=== PATIENT | female | born 1950 | race Asian ===

== ENCOUNTER 2022-06-23 15:04 | Inpatient (IN) | payer MEDICARE, OTHER ==
[~2022-06-23] VITALS: Ht 167.6 cm; Wt 63.5 kg
--- NOTE | 2022-06-23 15:37 | NUR ---
IV ESTABLISHED. 20G RAC
--- NOTE | 2022-06-23 15:37 | NUR ---
BLOOD DRAWN AND SENT TO LAB
--- NOTE | 2022-06-23 15:40 | NUR ---
MRSA SWAB COLLECTED AND SENT TO LAB
--- NOTE | 2022-06-23 15:40 | NUR ---
covid swab collected and sent to lab
--- NOTE | 2022-06-23 15:57 | NUR ---
MOVE SHEET SUBMITTED.
[2022-06-23 16:02] LABS: BASOPHILS # (AUTO) 0.1 K/uL (0.0-0.2); BASOPHILS % (AUTO) 0.9 % (0.0-2.0); EOSINOPHILS % (AUTO) 1.2 % (0.0-6.0); HEMATOCRIT 35 % (33-45); HEMOGLOBIN 11.7 g/dL (11.5-14.8); LYMPHOCYTES # (AUTO) 1.4 K/uL (0.8-4.8); LYMPHOCYTES % (AUTO) 14.5 % (20.0-44.0); MEAN CORPUSCULAR HGB CONC 33 g/dl (31.0-36.0); MEAN CORPUSCULAR VOLUME 100 fL (82-100); MONOCYTES # (AUTO) 0.8 K/uL (0.1-1.30); NEUTROPHILS # (AUTO) 7.5 K/uL (1.8-8.9); NEUTROPHILS % (AUTO) 75.4 % (43.0-81.0); PLATELET COUNT (AUTO) 337 K/uL (150-450); RED BLOOD CELL COUNT(AUTO) 3.54 MIL/uL (4.0-5.2)
[2022-06-23 16:10] LABS: CARBON DIOXIDE 27 mmol/L (21-32); CHLORIDE 106 mmol/L (98-107); CREATININE 0.4 mg/dL (0.6-1.3); GLUCOSE 115 mg/dL (74-106); POTASSIUM 3.4 mmol/L (3.5-5.1); SODIUM SERUM 138 mmol/L (136-145); UREA NITROGEN, BLOOD 20 mg/dL (7-18)
--- NOTE | 2022-06-23 16:14 | NUR ---
XRAY AT BEDSIDE
[2022-06-23] MEDS ORDERED: ONDANSETRON HCL/PF 4 MG/2 ML VIAL IVP PRN (17:00)
[2022-06-23] MEDS ORDERED: Z GUARD REMEDY 4 OZ OINT TP PRN (17:00)
[2022-06-23] MEDS ORDERED: ACETAMINOPHEN 325 MG TABLET PO PRN (17:00)
[2022-06-23] MEDS ORDERED: ZOLPIDEM TARTRATE 5 MG TABLET PO PRN (17:00)
[2022-06-23] MEDS ORDERED: MAGNESIUM HYDROXIDE 30 ML UDC PO PRN (17:00)
[2022-06-23] MEDS ORDERED: MAG HYDROX/AL HYDROX/SIMETH 30 ML UDC PO PRN (17:00)
--- NOTE | 2022-06-23 17:35 | NUR ---
REPORT GIVEN TO JONH FOR CONTINUATION OF CARE
--- NOTE | 2022-06-23 18:05 | NUR ---
RN NOTE RECEIVED PATIENT ALERT, ORIENTED X3, ON ROOM AIR. VITALS 98.1 HR 118, RR 22 02SAT 93% BP 137/83 WITH NO PAIN OR DISCOMFORT IV ACCESS ON RAC 20 BEST, PATENT AND FLUSHING WELL. PATIENT NOTD WITH BLE REDNESS ON TOES, PRESSURE ULCER ON SACRUM, AND PRESSURE ULCER ON LEFT EAR. PICTURES TAKEN. ALL SAFETY PRECAUTIONS TAKEN, HEAD OF BED ELEVATED, BED IN LOWEST AND LOCKED POSITION. WILL CONTINUE TO MONITOR.
--- NOTE | 2022-06-23 19:25 | NUR ---
RN CLOSING NOTE PATIENT ALERT, ORIENTED X3, ON ROOM AIR. VITALS WITH NO PAIN OR DISCOMFORT IV ACCESS ON RAC 20 BEST, PATENT AND FLUSHING WELL. PATIENT NOTED WITH BLE REDNESS ON TOES, PRESSURE ULCER ON SACRUM, AND PRESSURE ULCER ON LEFT EAR. PICTURES TAKEN. ALL SAFETY PRECAUTIONS TAKEN, HEAD OF BED ELEVATED, BED IN LOWEST AND LOCKED POSITION ON NPO, AWAITING SWALLOW EVAL. REPORT GIVEN TO NIGHT NURSE FOR CONTINUING OF CARE.
--- NOTE | 2022-06-23 19:30 | NUR ---
RN OPENING NOTE PATIENT ALERT, ORIENTED X3, ON ROOM AIR. PATIENT DENIES PAIN AT REST. IV ACCESS ON RAC 20 GAUGE, PATENT AND INTACT, FLUSHING WELL. PATIENT NPO, AWAITING SWALLOW EVAL. ALL SAFETY PRECAUTIONS TAKEN, HEAD OF BED ELEVATED, BED IN LOWEST AND LOCKED POSITION. REPORT GIVEN TO NIGHT NURSE FOR CONTINUING OF CARE.
[2022-06-23 20:00] VITALS: BP 115/73
[2022-06-23] MEDS: IV NS 0.9% 1,000 ML IV PRN (20:40)
[2022-06-24 04:00] VITALS: BP 106/61
[2022-06-24 06:24] LABS: BASOPHILS # (AUTO) 0.1 K/uL (0.0-0.2); BASOPHILS % (AUTO) 0.8 % (0.0-2.0); EOSINOPHILS % (AUTO) 0.6 % (0.0-6.0); HEMATOCRIT 34 % (33-45); HEMOGLOBIN 11.4 g/dL (11.5-14.8); LYMPHOCYTES # (AUTO) 1.6 K/uL (0.8-4.8); LYMPHOCYTES % (AUTO) 20.7 % (20.0-44.0); MEAN CORPUSCULAR HGB CONC 34 g/dl (31.0-36.0); MEAN CORPUSCULAR VOLUME 101 fL (82-100); MONOCYTES # (AUTO) 0.6 K/uL (0.1-1.30); MONOCYTES % (AUTO) 8.6 % (2.0-12.0); NEUTROPHILS # (AUTO) 5.2 K/uL (1.8-8.9); NEUTROPHILS % (AUTO) 69.3 % (43.0-81.0); PLATELET COUNT (AUTO) 321 K/uL (150-450); RED BLOOD CELL COUNT(AUTO) 3.37 MIL/uL (4.0-5.2); WHITE BLOOD COUNT (AUTO) 7.5 K/uL (4.3-11.0)
--- NOTE | 2022-06-24 06:45 | NUR ---
RN CLOSING NOTE PATIENT ALERT, ORIENTED X3, ON ROOM AIR. VITALS WITH NO PAIN OR DISCOMFORT. PATIENT IS NPO AWAITING SWALLOW EVAL. IV ACCESS ON RAC 20 BEST, PATENT AND FLUSHING WELL. ALL SAFETY PRECAUTIONS TAKEN, HEAD OF BED ELEVATED, BED IN LOWEST AND LOCKED POSITION. REPORT GIVEN TO THE NEXT SHIFT FOR CONTINUING OF CARE.
[2022-06-24 07:00] LABS: CARBON DIOXIDE 25 mmol/L (21-32); CHLORIDE 107 mmol/L (98-107); CREATININE 0.4 mg/dL (0.6-1.3); GLUCOSE 82 mg/dL (74-106); MAGNESIUM 2.2 mg/dL (1.8-2.4); PHOSPHORUS 3.2 mg/dL (2.5-4.9); POTASSIUM 3.4 mmol/L (3.5-5.1); SODIUM SERUM 139 mmol/L (136-145); UREA NITROGEN, BLOOD 20 mg/dL (7-18)
--- NOTE | 2022-06-24 07:45 | NUR ---
MS RN OPENING NOTE PATIENT ALERT, ORIENTED X3, ON ROOM AIR. NO COMPLAINTS OF PAIN OR DISCOMFORT NOTED AT THIS TIME.IV ACCESS ON RAC 20 BEST, PATENT AND FLUSHING WELL. CURRENTLY NPO AT THIS TIME,PENDING SWALLOW EVAL. ALL SAFETY PRECAUTIONS TAKEN, HEAD OF BED ELEVATED, BED IN LOWEST AND LOCKED POSITION. SIDE RAILS UP X2. BED ALARM ON
[2022-06-24 08:00] VITALS: BP 96/63
--- NOTE | 2022-06-24 09:19 | NUR ---
WOUND CARE CONSULT: PT PRESENTS WITH MULTIPLE WOUNDS AND SKIN ISSUES INCLUDING BILATERAL HEEL SCARS WITH PEELING SKIN, LEFT EAR DEEP TISSUE INJURY AND SACRAL UNSTAGEABLE PRESSURE ULCER, ALL PRESENT ON ADMISSION. DR CJ ROWLEY CALLED FOR SURGICAL CONSULT. RECOMMENDATIONS MADE FOR SKIN PROTECTION AND WOUND CARE. DISCUSSED WITH NURSING STAFF. PT IS INCONTINENT. FIRST STEP LOW AIRLOSS MATTRESS IS ON ORDER. Addendum: 06/24/22 at 0920 by MARCO MALDONADO WNDNU Amended: Links added.
[2022-06-24] MEDS: IV NS 0.9% 1,000 ML IV PRN (11:47)
[2022-06-24] MEDS: POTASSIUM CL. PREMIX PERIPHER. 50 ML IV SCH ×2 (11:47→12:58)
[2022-06-24] MEDS ORDERED: AMIN30LI2 PO (12:13)
[2022-06-24] MEDS ORDERED: LACT-246 PO (12:13)
[2022-06-24] MEDS ORDERED: HYDR170P TP (12:13)
[2022-06-24] MEDS ORDERED: POVI3780 TP (12:13)
[2022-06-24] MEDS ORDERED: MIRT7.5T10 PO (12:13)
[2022-06-24] MEDS ORDERED: ATOR10TA PO (12:13)
[2022-06-24] MEDS ORDERED: MEGE400O4 PO (12:13)
[2022-06-24] MEDS ORDERED: HALO5TAB8 PO (12:13)
[2022-06-24] MEDS ORDERED: DIVA125T32 PO (12:13)
[2022-06-24] MEDS ORDERED: COLL30OI TP (12:13)
[2022-06-24] MEDS ORDERED: OLAN5TAB3 PO (12:13)
[2022-06-24] MEDS ORDERED: ASCO-340 PO (12:13)
[2022-06-24] MEDS ORDERED: MULT-447 PO (12:13)
[2022-06-24] MEDS: NEOMY SULF/BACITRAC ZN/POLY 15 GM TUBE TP SCH (14:27)
[2022-06-24] MEDS: DAKINS QUARTER STRENGTH (0.125%) 480 ML BOTTLE TOP SCH (14:28)
[2022-06-24 16:00] VITALS: BP 102/64
[2022-06-24] MEDS: MEGESTROL ACETATE SUSP 400 MG/10 ML UDC PO SCH ×2 (17:00→18:18)
[2022-06-24] MEDS: OLANZAPINE 5 MG TABLET PO SCH (17:00)
[2022-06-24] MEDS: ENSURE ENLIVE 237 ML LIQUID (VANILLA) PO SCH (17:00)
[2022-06-24] MEDS ORDERED: PROSOURCE / PROSTAT (PYXIS) 30 ML UDC PO SCH (17:00)
--- NOTE | 2022-06-24 19:10 | NUR ---
RN OPENING NOTES RECEIVED PATIENT ON BED, AWAKE, A/0 x 3 . ON ROOM AIR SATING AT 97%. NO SOB NOTED. AFEBRILE, NO S/S OF DISTRESS NOTED. NOTED WITH RAC #2O PERIPHERAL LINE FLUSHED WITH NS, NO S/S OF INFILTRATION NOTED. RUNNING WITH NS @ 75 ML/HR. ALL SAFETY PRECAUTION PROVIDED. BED IN LOWEST POSITION, LOCKED. CALL LIGHT WITH IN REACH.
[2022-06-24 20:00] VITALS: BP 106/64
--- NOTE | 2022-06-24 20:09 | NUR ---
MS RN CLOSING NOTE PATIENT ALERT, ORIENTED X3, ON ROOM AIR. NO COMPLAINTS OF PAIN OR DISCOMFORT NOTED AT THIS TIME.IV ACCESS ON RAC 20 BEST, PATENT AND FLUSHING WELL. PT CURRENTLY ON PUREED DIET. ALL SAFETY PRECAUTIONS TAKEN, HEAD OF BED ELEVATED, BED IN LOWEST AND LOCKED POSITION. SIDE RAILS UP X2. ENDORSED TO INTAKE COORDINATOR RN FOR CONTUITY OF CARE.
[2022-06-24] MEDS: DIVALPROEX SODIUM 125 MG TABLET.DR PO SCH (21:45)
[2022-06-24] MEDS: ATORVASTATIN 10 MG TABLET PO SCH (21:45)
[2022-06-24] MEDS: MIRTAZAPINE 15 MG TABLET PO SCH (21:46)
[2022-06-25 04:00] VITALS: BP 107/63
[2022-06-25] MEDS: IV NS 0.9% 1,000 ML IV PRN ×2 (04:03→18:45)
[2022-06-25 06:08] LABS: BASOPHILS # (AUTO) 0.1 K/uL (0.0-0.2); BASOPHILS % (AUTO) 0.9 % (0.0-2.0); EOSINOPHILS % (AUTO) 0.7 % (0.0-6.0); HEMATOCRIT 36 % (33-45); HEMOGLOBIN 11.9 g/dL (11.5-14.8); LYMPHOCYTES # (AUTO) 1.3 K/uL (0.8-4.8); LYMPHOCYTES % (AUTO) 14.4 % (20.0-44.0); MEAN CORPUSCULAR HGB CONC 33 g/dl (31.0-36.0); MEAN CORPUSCULAR VOLUME 101 fL (82-100); MONOCYTES # (AUTO) 0.7 K/uL (0.1-1.30); MONOCYTES % (AUTO) 7.6 % (2.0-12.0); NEUTROPHILS # (AUTO) 6.7 K/uL (1.8-8.9); NEUTROPHILS % (AUTO) 76.4 % (43.0-81.0); PLATELET COUNT (AUTO) 301 K/uL (150-450); RED BLOOD CELL COUNT(AUTO) 3.55 MIL/uL (4.0-5.2); WHITE BLOOD COUNT (AUTO) 8.8 K/uL (4.3-11.0)
[2022-06-25 06:18] LABS: CALCIUM, SERUM 8.2 mg/dL (8.5-10.1); CARBON DIOXIDE 25 mmol/L (21-32); CHLORIDE 109 mmol/L (98-107); CREATININE 0.4 mg/dL (0.6-1.3); GLUCOSE 85 mg/dL (74-106); POTASSIUM 3.5 mmol/L (3.5-5.1); SODIUM SERUM 140 mmol/L (136-145); UREA NITROGEN, BLOOD 20 mg/dL (7-18)
--- NOTE | 2022-06-25 07:39 | NUR ---
MS RN OPENING NOTE PATIENT RECEIVED IN BED ASLEEP. ON ROOM AIR BREATHING EVEN AND UNLABORED WITH NO S/S OF SOB OR RESPIRATORY DISTRESS.. IV ACCESS AT RAC 20G, PATENT AND INTACT WITH NS RUNNING AT 75 ML/HR. ALL SAFETY PRECAUTIONS TAKEN WITH HEAD OF BED ELEVATED, BED IN LOWEST AND LOCKED POSITION, SIDE RAILS UP X2. WILL CONTINUE TO MONITOR.
[2022-06-25] MEDS: NEOMY SULF/BACITRAC ZN/POLY 15 GM TUBE TP SCH (09:00)
[2022-06-25] MEDS: OLANZAPINE 5 MG TABLET PO SCH ×3 (09:00→17:00)
[2022-06-25] MEDS: DAKINS QUARTER STRENGTH (0.125%) 480 ML BOTTLE TOP SCH (09:00)
--- NOTE | 2022-06-25 10:19 | NUR ---
CANNOT LOCATE MIACAL[facility]IN. PHARMACY NOTIFIED. TOLD THEY DO NOT HAVE ANYMORE AND CANNOT PROVIDE ANOTHER ONE. Addendum: 06/25/22 at 1058 by ROSCOE CLARKE RN PLEASE DISREGARD. WRONG PATIENT.
[2022-06-25] MEDS: DIVALPROEX SODIUM 125 MG TABLET.DR PO SCH (10:31)
[2022-06-25] MEDS: MULTIVIT W/MINERALS 1 TAB TABLET PO SCH (10:31)
[2022-06-25] MEDS: ASCORBIC ACID 500 MG TABLET PO SCH (10:31)
[2022-06-25] MEDS: MEGESTROL ACETATE SUSP 400 MG/10 ML UDC PO SCH ×2 (10:32→18:01)
[2022-06-25] MEDS: PROSOURCE / PROSTAT (PYXIS) 30 ML UDC PO SCH ×3 (10:32→18:01)
[2022-06-25] MEDS: ENSURE ENLIVE 237 ML LIQUID (VANILLA) PO SCH ×3 (10:56→18:01)
--- NOTE | 2022-06-25 10:57 | NUR ---
FAMILY WOULD LIKE TO HOLD OLANZAPINE UNTIL THEY SPEAK WITH PATIENT'S DOCTOR.
--- NOTE | 2022-06-25 12:30 | NUR ---
PATIENT POCKETING FOOD AND DRINK. WILL NOT SWALLOW. Addendum: 06/25/22 at 1241 by ROSCOE CLARKE RN PATIENT POCKETING FOOD ONLY.
[2022-06-25 16:00] VITALS: BP 114/67
--- NOTE | 2022-06-25 17:50 | NUR ---
PER MD ORDER, WILL CONTINUE TO HOLD OLANZAPINE.
--- NOTE | 2022-06-25 18:55 | NUR ---
MS RN CLOSING NOTE PATIENTIN BED RESTING. ON ROOM AIR BREATHING EVEN AND UNLABORED WITH NO S/S OF SOB OR RESPIRATORY DISTRESS SATING AT 98%. IV ACCESS AT RAC 20G, PATENT AND INTACT WITH NS RUNNING AT 75 ML/HR. PUREWICK IN PLACE. ALL DUE MEDS GIVEN EXCEPT FOR PSYCH MEDICATION PER BENJAMIN MARTINES NPRN. WOUND CARE PROVIDED AND PATIENT KEPT CLEAN AND COMFORTABLE. ALL SAFETY PRECAUTIONS TAKEN WITH HEAD OF BED ELEVATED, BED IN LOWEST AND LOCKED POSITION, SIDE RAILS UP X2. WILL ENDORSE TO ONCOMING SHIFT FOR THONG. Addendum: 06/25/22 at 1908 by ROSCOE CLARKE RN PATIENT IS ALERT AND ORIENTED X4.
[2022-06-25 20:00] VITALS: BP 115/77
--- NOTE | 2022-06-25 20:00 | NUR ---
RECEIVED PATIENT IN BED, ALERT/ORIENTED X3, FORGETFUL, STABLE ON ROOM AIR, NO COMPLAIN OF PAIN, PUREED DIET, THIN LIQUID, PER REPORT, PATIENT IS POCKETING MEDICATION. MOUTH CARE PROVIDED. KEPT SAFE, WILL CONTINUE TO MONITOR.
[2022-06-25] MEDS: DIVALPROEX SODIUM 125 MG CAP.SPRINK PO SCH (20:56)
[2022-06-25] MEDS: ATORVASTATIN 10 MG TABLET PO SCH (21:42)
[2022-06-25] MEDS: MIRTAZAPINE 15 MG TABLET PO SCH (21:43)
[2022-06-26 04:28] VITALS: BP 101/69
--- NOTE | 2022-06-26 05:53 | NUR ---
ALERT/ORIENTED X2, ROOM AIR, NO COMPLAIN OF PAIN, INCONTINENT OF BOWEL AND BLADDER, DYSPHAGIA, PASSED ST EVAL, PUREED DIET, CRUSHED MEDS, GIVE MEDS WITH CAUTION, POCKETING FOOD AND MEDICATION. CONTINUE IVF, ASPIRATION PRECAUTION, PSYCH EVAL, SACRAL WOUND UNSTAGEABLE, PER SUPERVISOR PACKING SUMINISTRADO, REFUSING SHARP DEBRIDEMENT, RECOMMENDS CHEMICAL DEBRIDER.
[2022-06-26 06:17] LABS: BASOPHILS # (AUTO) 0.1 K/uL (0.0-0.2); BASOPHILS % (AUTO) 0.8 % (0.0-2.0); EOSINOPHILS % (AUTO) 0.5 % (0.0-6.0); HEMATOCRIT 36 % (33-45); LYMPHOCYTES # (AUTO) 1.1 K/uL (0.8-4.8); LYMPHOCYTES % (AUTO) 14.2 % (20.0-44.0); MEAN CORPUSCULAR HGB CONC 34 g/dl (31.0-36.0); MEAN CORPUSCULAR VOLUME 99 fL (82-100); MONOCYTES # (AUTO) 0.5 K/uL (0.1-1.30); MONOCYTES % (AUTO) 6.5 % (2.0-12.0); PLATELET COUNT (AUTO) 353 K/uL (150-450); RED BLOOD CELL COUNT(AUTO) 3.59 MIL/uL (4.0-5.2); WHITE BLOOD COUNT (AUTO) 7.7 K/uL (4.3-11.0)
[2022-06-26 06:24] LABS: CALCIUM, SERUM 8.2 mg/dL (8.5-10.1); CARBON DIOXIDE 25 mmol/L (21-32); CHLORIDE 110 mmol/L (98-107); CREATININE 0.3 mg/dL (0.6-1.3); POTASSIUM 3.9 mmol/L (3.5-5.1); SODIUM SERUM 141 mmol/L (136-145); UREA NITROGEN, BLOOD 21 mg/dL (7-18)
[2022-06-26 06:46] LABS: GLUCOSE 94 mg/dL (74-106)
--- NOTE | 2022-06-26 07:15 | NUR ---
MED SURGE OPEN NOTE: ALERT X2. UNLABORED BREATHING AT ROOM AIR. IV ON RAC G20 WITH NS IVF 75 ML/HR. DENIES PAIN OR DISCOMFORT. HOB ELEVATED, BILATERAL HALF SIDE RAILS UP X2. BED IN LOW POSITION, LOCKED AND EXIT ALARM ON. CALL LIGHT IN REACH.
[2022-06-26] MEDS: ENSURE ENLIVE 237 ML LIQUID (VANILLA) PO SCH ×3 (08:24→16:41)
[2022-06-26] MEDS: PROSOURCE / PROSTAT (PYXIS) 30 ML UDC PO SCH ×3 (08:25→16:45)
[2022-06-26] MEDS: IV NS 0.9% 1,000 ML IV PRN (08:25)
[2022-06-26] MEDS: OLANZAPINE 5 MG TABLET PO SCH (09:00)
[2022-06-26] MEDS: MULTIVIT W/MINERALS 1 TAB TABLET PO SCH (09:23)
[2022-06-26] MEDS: MEGESTROL ACETATE SUSP 400 MG/10 ML UDC PO SCH ×2 (09:23→16:41)
[2022-06-26] MEDS: DIVALPROEX SODIUM 125 MG CAP.SPRINK PO SCH ×2 (09:23→22:27)
[2022-06-26] MEDS: ASCORBIC ACID 500 MG TABLET PO SCH (09:23)
--- NOTE | 2022-06-26 09:24 | NUR ---
BENJAMIN MARTINES ELEVATOR ERECTOR HELPER INFORMED PER FAMILY WANTS TO HOLD ZYPREXA UNTIL SPEAK TO MD AND ZYPREXA HELD. RESPONSIBLE ANAND PETERSON [phone].
[2022-06-26] MEDS: DAKINS QUARTER STRENGTH (0.125%) 480 ML BOTTLE TOP SCH (09:30)
[2022-06-26] MEDS: NEOMY SULF/BACITRAC ZN/POLY 15 GM TUBE TP SCH (09:31)
--- NOTE | 2022-06-26 16:02 | NUR ---
BENJAMIN MARTINES WITH ORDER TO JERSEY DELUCA.
--- NOTE | 2022-06-26 18:20 | NUR ---
MED SURGE CLOSING NOTE: ALERT X2. UNLABORED BREATHING AT ROOM AIR. IV ON RIGHT UPPER ARM G20 SALINE LOCKED. CONTINUES WITH ASPIRATION PRECAUTIONS. TURNED AND REPOSITIONED. CONTINUES TO POCKET FOOD. WOUND CARE DONE TURNED DENIES PAIN OR DISCOMFORT. HOB ELEVATED, BILATERAL HALF SIDE RAILS UP X2. BED IN LOW POSITION, LOCKED AND EXIT ALARM ON. CALL LIGHT IN REACH.
--- NOTE | 2022-06-26 19:30 | NUR ---
MS RN OPENING NOTES RECEIVED PATIENT IN BED, SLEEPING. AWAKENS BY TOUCHING AND CALLING NAME. A/O X 2. PATIENT ON ROOM AIR, BREATHING EVEN AND UNLABORED, NO S/S OF DISTRESS OR SOB NOTED AT THIS TIME. NO S/S OF PAIN NOTED. HOB ELEVATED. IV ACCESS ON RIGHT UPPER ARM #20G, SALINE LOCK, INTACT AND PATENT. SAFETY MEASURES IN PLACE WITH BED IN LOWEST AND LOCKED POSITION. SIDE RAILS UP X 2. CALL LIGHT AND TRAY WITHIN EASY REACH. WILL CONTINUE TO MONITOR THE PATIENT.
[2022-06-26] MEDS: MIRTAZAPINE 15 MG TABLET PO SCH (22:28)
[2022-06-26] MEDS: ATORVASTATIN 10 MG TABLET PO SCH (22:28)
[2022-06-27 06:58] LABS: CALCIUM, SERUM 8.3 mg/dL (8.5-10.1); CARBON DIOXIDE 24 mmol/L (21-32); CHLORIDE 109 mmol/L (98-107); CREATININE 0.2 mg/dL (0.6-1.3); GLUCOSE 83 mg/dL (74-106); POTASSIUM 3.2 mmol/L (3.5-5.1); SODIUM SERUM 141 mmol/L (136-145); UREA NITROGEN, BLOOD 22 mg/dL (7-18)
--- NOTE | 2022-06-27 07:30 | NUR ---
MED SURGE OPEN NOTE: ALERT X2. UNLABORED BREATHING AT ROOM AIR. IV ON Right UPPER ARM SALINE LOCKED PATENT. DENIES PAIN OR DISCOMFORT. HOB ELEVATED, BILATERAL HALF SIDE RAILS UP X2. BED IN LOW POSITION, LOCKED AND EXIT ALARM ON. CALL LIGHT IN REACH.
--- NOTE | 2022-06-27 07:37 | NUR ---
MS RN CLOSING NOTES PATIENT IN BED, SLEEPING. AWAKENS BY TOUCHING AND CALLING NAME. A/O X 2. PATIENT ON ROOM AIR, BREATHING EVEN AND UNLABORED, NO S/S OF DISTRESS OR SOB NOTED AT THIS TIME. NO S/S OF PAIN NOTED. HOB ELEVATED. IV ACCESS ON RIGHT UPPER ARM #20G, SALINE LOCK, INTACT AND PATENT. SAFETY MEASURES MAINTAINED. WILL ENDORSE TO THE NEXT SHIFT.
[2022-06-27] MEDS: ENSURE ENLIVE 237 ML LIQUID (VANILLA) PO SCH ×2 (08:52→13:14)
[2022-06-27] MEDS: PROSOURCE / PROSTAT (PYXIS) 30 ML UDC PO SCH ×2 (08:52→13:15)
[2022-06-27] MEDS: MULTIVIT W/MINERALS 1 TAB TABLET PO SCH (09:14)
[2022-06-27] MEDS: ASCORBIC ACID 500 MG TABLET PO SCH (09:14)
[2022-06-27] MEDS: DIVALPROEX SODIUM 125 MG CAP.SPRINK PO SCH (09:14)
[2022-06-27] MEDS: MEGESTROL ACETATE SUSP 400 MG/10 ML UDC PO SCH (09:14)
[2022-06-27] MEDS: DAKINS QUARTER STRENGTH (0.125%) 480 ML BOTTLE TOP SCH (09:15)
[2022-06-27] MEDS: NEOMY SULF/BACITRAC ZN/POLY 15 GM TUBE TP SCH (09:15)
[2022-06-27] MEDS: POTASSIUM CHLORIDE 20 MEQ POWDER PACKET NG SCH ×2 (11:30→13:18)
[2022-06-27] MEDS ORDERED: ATOR10TA PO (12:41)
[2022-06-27] MEDS ORDERED: Prosource PO (12:41)
[2022-06-27] MEDS ORDERED: LACT-246 PO (12:41)
[2022-06-27] MEDS ORDERED: ACET325T53 PO (12:41)
[2022-06-27] MEDS ORDERED: SODI473S8 TOP (12:41)
[2022-06-27] MEDS ORDERED: Multivit W/Minerals PO (12:41)
[2022-06-27] MEDS ORDERED: MAG30ORA PO (12:41)
[2022-06-27] MEDS ORDERED: DIVA125C2 PO (12:41)
[2022-06-27] MEDS ORDERED: MEGE400O5 PO (12:41)
[2022-06-27] MEDS ORDERED: MIRT-121 PO (12:41)
[2022-06-27] MEDS ORDERED: Neomy Sulf/Bacitrac Zn/Poly TP (12:41)
[2022-06-27] MEDS ORDERED: ASCO500T21 PO (12:41)
--- NOTE | 2022-06-27 16:13 | NUR ---
CALLED [facility] REPORT GIVEN TO LYNN FLOR.
--- NOTE | 2022-06-27 16:30 | NUR ---
RESIDENT IS ALERT AND ORIENTED X2. UNLABORED BREATHING AT ROOM AIR. MOIST ORAL MUCOSA. UNLABORED BREATHING AT ROOM AIR. IV ON RIGHT UPPER ARM REMOVED NO S/S OF COMPLICATIONS. WOUND CARE DONE ORDERED. TURNED AND REPOSITIONED. AMBULANCE 2 EMT'S HERE TO TRANSFER TO [facility], REPORT GIVEN. DENIES PAIN OR DISCOMFORT.
--- NOTE | 2022-06-27 16:55 | NUR ---
PATIENT DISCHARGED TO [facility]IA [facility] AMBULANCE ORDERED. NO S/S OF PAIN OR DISCOMFORT.
== END 2022-06-27 16:56 | DRG 640 ==
LOC: ER 15:08 → MEDSG1 17:35
PROVIDERS: ADMIT Nurse Practitioner Acute Care; ATTEND Nurse Practitioner Acute Care
DX: R62.7 Adult failure to thrive (principal); G93.41 Metabolic encephalopathy; E86.0 Dehydration; G89.4 Chronic pain syndrome; Z66 Do not resuscitate; E78.5 Hyperlipidemia, unspecified; G62.9 Polyneuropathy, unspecified; F41.9 Anxiety disorder, unspecified; F29 Unspecified psychosis not due to a substance or known physiological condition; F31.9 Bipolar disorder, unspecified; R13.10 Dysphagia, unspecified; H02.409 Unspecified ptosis of unspecified eyelid; H26.9 Unspecified cataract; R79.89 Other specified abnormal findings of blood chemistry; E87.6 Hypokalemia; E83.51 Hypocalcemia; L89.150 Pressure ulcer of sacral region, unstageable
CPT/HCPCS: 36415; 72170-TC; 73552; 80048-TC; 82962-TC; 83735-TC; 84100-TC; 85025-TC; 87081-TC; 92526; 92611-TC; A4223; A6253; A6403; C9803; G0378; J3480; J3490; J7030

== ENCOUNTER 2022-07-19 16:50 | Inpatient (IN) | payer MEDICARE, OTHER ==
[~2022-07-19] VITALS: Ht 167.6 cm; Wt 57.6 kg
[~2022-07-19 16:50] MED LIST: ACET325T53 PO; ASCO500T21 PO; ATOR10TA PO; COLL30OI TP; DIVA125C2 PO; DIVA125T32 PO; LACT-246 PO; MAG30ORA PO; MEGE400O5 PO; MIRT-121 PO; Multivit W/Minerals PO; Neomy Sulf/Bacitrac Zn/Poly TP; POVI3780 TP; Prosource PO; SODI473S8 TOP
--- NOTE | 2022-07-19 17:26 | NUR ---
KERVIN JONES FROM [facility] FOR G-TUBE PLACEMENT FOR DYSPHAGIA. THE PATIENT IS ALERT TO SELF. DENIES PAIN. IN ROOM AIR AND DENIES SOB. RESPIRATION REGULAR AND UNLABORED. WILL CONTINUE TO MONITOR THE PATIENT.
[2022-07-19] MEDS ORDERED: IV NS 0.9% 1,000 ML BAG IV ONE (17:30)
--- NOTE | 2022-07-19 17:40 | NUR ---
iv line is established, blood specimen collected and sent to the lab. the line is saline locked.
--- NOTE | 2022-07-19 17:55 | NUR ---
covid swab done and sent to the lab
--- NOTE | 2022-07-19 17:58 | NUR ---
PAGED EPIC PSYCHOLOGICAL STRESS EVALUATOR
--- NOTE | 2022-07-19 17:58 | NUR ---
SUBMITTED MOVE SHEET
--- NOTE | 2022-07-19 18:01 | NUR ---
CHARLY ALEX AND [facility] ASSOCIATE ATTORNEY ON THE PHONE
[2022-07-19 18:11] LABS: BASOPHILS # (AUTO) 0.1 K/uL (0.0-0.2); BASOPHILS % (AUTO) 0.8 % (0.0-2.0); EOSINOPHILS % (AUTO) 0.3 % (0.0-6.0); HEMATOCRIT 35 % (33-45); HEMOGLOBIN 11.6 g/dL (11.5-14.8); LYMPHOCYTES % (AUTO) 14.9 % (20.0-44.0); MEAN CORPUSCULAR HGB CONC 33 g/dl (31.0-36.0); MEAN CORPUSCULAR VOLUME 98 fL (82-100); MONOCYTES % (AUTO) 7.2 % (2.0-12.0); NEUTROPHILS # (AUTO) 10.2 K/uL (1.8-8.9); NEUTROPHILS % (AUTO) 76.8 % (43.0-81.0); PLATELET COUNT (AUTO) 498 K/uL (150-450); WHITE BLOOD COUNT (AUTO) 13.2 K/uL (4.3-11.0)
[2022-07-19 18:26] LABS: CALCIUM, SERUM 8.7 mg/dL (8.5-10.1); CARBON DIOXIDE 23 mmol/L (21-32); CHLORIDE 105 mmol/L (98-107); CREATININE 0.4 mg/dL (0.6-1.3); GLUCOSE 113 mg/dL (74-106); POTASSIUM 3.8 mmol/L (3.5-5.1); SODIUM SERUM 135 mmol/L (136-145); UREA NITROGEN, BLOOD 19 mg/dL (7-18)
[2022-07-19 18:29] LABS: ALANINE AMINOTRANSFERASE 30 U/L (12-78); ALBUMIN 1.9 g/dL (3.4-5.0); ALKALINE PHOSPHATASE 83 U/L (46-116); ASPARTATE AMINOTRANSFERASE 20 U/L (15-37); BILIRUBIN,DIRECT 0.3 mg/dL (0.0-0.2); BILIRUBIN,TOTAL 0.9 mg/dL (0.2-1.0); TOTAL PROTEIN, SERUM 6.6 g/dL (6.4-8.2)
[2022-07-19] MEDS ORDERED: ACETAMINOPHEN 325 MG TABLET PO PRN (19:00)
[2022-07-19] MEDS ORDERED: MAGNESIUM HYDROXIDE 30 ML UDC PO PRN (19:00)
[2022-07-19] MEDS ORDERED: MAG HYDROX/AL HYDROX/SIMETH 30 ML UDC PO PRN (19:00)
[2022-07-19] MEDS ORDERED: Z GUARD REMEDY 4 OZ OINT TP PRN (19:00)
[2022-07-19] MEDS ORDERED: ONDANSETRON HCL/PF 4 MG/2 ML VIAL IVP PRN (19:00)
[2022-07-19 20:00] VITALS: BP 107/71
[2022-07-19] MEDS ORDERED: ENOXAPARIN SODIUM 40 MG/0.4 ML DISP.SYRIN SQ SCH (20:02)
--- NOTE | 2022-07-19 20:07 | NUR ---
REPORT GIVEN TO JOSEPH Jung GAME DESIGNER/CREATIVE DIRECTOR FOR THONG
--- NOTE | 2022-07-19 20:15 | NUR ---
PT TRANSFERRING TO 3W 308-2 VIA ACLS PROTOCOL. VSS. ALL BELONGINGS WITH PT.
[2022-07-19 20:54] VITALS: BP 107/71
--- NOTE | 2022-07-19 20:55 | NUR ---
MS TRUCK DESPATCHER INITIAL NOTES Admit patient from ER via gurrenetta accompanied by Abilio Kelly of Failure to Thrived. Pt is alert to her name, came from snf for g-tube placement. Skin warm and dry to touch , Breathing even and non-labored not in any acute distress noted even she's in room air. skin assessment done and recorded. Iv site on her right hand gauge 20 patent and intact. Oriented pt where she at and how to used the call light system. kept her warm and comfortable at all times. Bed in low and lock in position with side rails x2 up . bed alarm set for pt safety. will continue monitoring.
[2022-07-19] MEDS: DIVALPROEX SODIUM 125 MG CAP.SPRINK PO SCH (21:42)
[2022-07-19] MEDS: IV D5/ 0.9% NACL 1,000 ML IV PRN (23:24)
[2022-07-20 06:15] LABS: BASOPHILS # (AUTO) 0.1 K/uL (0.0-0.2); BASOPHILS % (AUTO) 0.7 % (0.0-2.0); EOSINOPHILS % (AUTO) 1.1 % (0.0-6.0); HEMATOCRIT 32 % (33-45); HEMOGLOBIN 10.5 g/dL (11.5-14.8); LYMPHOCYTES # (AUTO) 1.4 K/uL (0.8-4.8); LYMPHOCYTES % (AUTO) 18.3 % (20.0-44.0); MEAN CORPUSCULAR HGB CONC 33 g/dl (31.0-36.0); MEAN CORPUSCULAR VOLUME 99 fL (82-100); MONOCYTES # (AUTO) 0.7 K/uL (0.1-1.30); MONOCYTES % (AUTO) 8.7 % (2.0-12.0); NEUTROPHILS # (AUTO) 5.6 K/uL (1.8-8.9); NEUTROPHILS % (AUTO) 71.2 % (43.0-81.0); PLATELET COUNT (AUTO) 422 K/uL (150-450); RED BLOOD CELL COUNT(AUTO) 3.26 MIL/uL (4.0-5.2); WHITE BLOOD COUNT (AUTO) 7.8 K/uL (4.3-11.0)
[2022-07-20 06:40] LABS: CALCIUM, SERUM 8.1 mg/dL (8.5-10.1); CARBON DIOXIDE 27 mmol/L (21-32); CHLORIDE 107 mmol/L (98-107); CREATININE 0.4 mg/dL (0.6-1.3); GLUCOSE 95 mg/dL (74-106); MAGNESIUM 1.9 mg/dL (1.8-2.4); PHOSPHORUS 3.1 mg/dL (2.5-4.9); POTASSIUM 3.6 mmol/L (3.5-5.1); SODIUM SERUM 140 mmol/L (136-145); UREA NITROGEN, BLOOD 19 mg/dL (7-18)
[2022-07-20 07:00] VITALS: BP 116/75
--- NOTE | 2022-07-20 07:10 | NUR ---
MS GAS ROLLER OPERATOR CLOSING NOTES PT RESTING COMFORTABLY IN BED WITHOUT ANY DISTRESS NOTED. STABLE SINCE ADMISSION . IVF D5NS AT 75ML/HR INFUSING AT THIS TIME. MORNING CARE DONE. PUREWICK SUCTIONED WELL, NOTICED YELLOW ORANGE OUTPUT NOTED. BED IN LOW AND LOCK IN POSITION WITH SIDE RAILS X2 UP PLACE CALL LIGHT AT REACH.
--- NOTE | 2022-07-20 07:46 | NUR ---
OPENING NOTE PATIENT RECEIVED ASLEEP ON ROOM AIR, WITH NO S/S OF SOB. RESPONSIVE TO VERBAL STIMULI, A/Ox3. IV ACCESS R HAND 20G, RUNNING D5 NS. PAIN LEVEL 0 PER PT RESPONSE. NO EDEMA NOTED, SACRAL WOUND AND WOUND ON L EAR. FALL AND SAFETY PRECAUTIONS IN PLACE: BED LOCKED AND AT THE LOWEST POSITION, SRx2, CALL LIGHT WITHIN REACH.
--- NOTE | 2022-07-20 08:03 | NUR ---
WOUND CARE CONSULT: PT PRESENTS WITH STAGE 4 PRESSURE ULCER TO SACRUM AND LEFT EAR DEEP TISSUE INJURY, PRESENT ON ADMISSION. DR CJ ROWLEY CALLED FOR SURGICAL CONSULT. DISCUSSED SKIN PROTECTION AND WOUND CARE RECOMMENDATIONS WITH NURSING STAFF. PT IS ON ROE ISOFLEX LOW AIRLOSS BED. PURE WICK SYSTEM IN USE FOR URINARY INCONTINENCE. IN AGREEMENT WITH PLAN OF CARE. Addendum: 07/20/22 at 0805 by MARCO MALDONADO WNDNU Amended: Links added.
[2022-07-20] MEDS: DIVALPROEX SODIUM 125 MG CAP.SPRINK PO SCH ×2 (09:19→21:19)
[2022-07-20] MEDS: DAKINS QUARTER STRENGTH (0.125%) 480 ML BOTTLE TOP SCH (09:20)
--- NOTE | 2022-07-20 09:33 | NUR ---
NURSE /BEDSIDE SWALLOW EVALUATION MEDICATION GAVE CRUSHED. OBSERVATION WITH APPLE SAUCE: DELAYED SWALLOWING, ABLE TO TOLERATE IN SMALL DOSES, ABLE TO DRINK WATER IN SMALL SIPS, NO STRAW USED. POTENTIAL ASPIRATION RISK.
[2022-07-20] MEDS ORDERED: MIRT7.5T10 PO (09:52)
[2022-07-20] MEDS ORDERED: MUPI22OI2 TP (09:52)
[2022-07-20] MEDS ORDERED: MULT-447 PO (09:52)
[2022-07-20] MEDS ORDERED: INSU100V3 SQ (09:52)
[2022-07-20] MEDS ORDERED: PETR113O TP (09:52)
[2022-07-20] MEDS ORDERED: COLL30OI TP (09:52)
[2022-07-20] MEDS ORDERED: METR45CR TP (09:52)
[2022-07-20] MEDS ORDERED: ASCO-352 PO (09:52)
[2022-07-20] MEDS ORDERED: ACET-868 PO (09:52)
[2022-07-20] MEDS ORDERED: ZINC50TA69 PO (09:52)
[2022-07-20] MEDS ORDERED: AMIN30LI2 PO (09:52)
[2022-07-20] MEDS: PANTOPRAZOLE 40 MG VIAL IV SCH (09:56)
[2022-07-20] MEDS ORDERED: SILVER NITRATE APPLICATOR 1 EA BOX TP ONE (14:00)
--- NOTE | 2022-07-20 14:28 | NUR ---
MEDICATION NOTE HELD SILVER NITRATE ITS FOR A DETRIMENT PROCEDURE DUE ON 07/21.
[2022-07-20] MEDS ORDERED: LIDOCAINE 1%-EPI 1:100,000 50 ML VIAL IJ ONE (14:30)
--- NOTE | 2022-07-20 15:13 | NUR ---
MEDICATION NOTE HELD LIDOCAINE ITS FOR A DETRIMENT PROCEDURE DUE ON 07/21.
[2022-07-20 16:18] VITALS: BP 120/74
[2022-07-20] MEDS: PROSOURCE / PROSTAT (PYXIS) 30 ML UDC GT SCH (18:10)
[2022-07-20] MEDS: ARGININE/GLUTAMINE/CALCIUM BMB 1 EACH POWD.PACK PO SCH (18:10)
--- NOTE | 2022-07-20 19:22 | NUR ---
CLOSING NOTE PATIENT AWAKE, WITH NO S/S OF SOB. A/Ox2-3. IV ACCESS R HAND 20G, RUNNING D5 NS. MEDICATION REGIME FOLLOWED ORDERED/ PER PT STATUS. WOUND CARE TREATMENT ON SACRAL AREA DONE ORDERED. DEBRIDEMENT ITEMS LEFT BY THE BEDSIDE FOR TREATMENT TOMORROW,07/21. FALL AND SAFETY PRECAUTIONS IN PLACE: BED LOCKED AND AT THE LOWEST POSITION, SRx2, CALL LIGHT WITHIN REACH.
--- NOTE | 2022-07-20 19:45 | NUR ---
MS RN OPENING NOTE PATIENT AWAKE IN BED, ALERT/ORIENTED X 3, PT NOTED WITH DELAYED SPEECH. PATIENT DENIES PAIN AT THIS TIME. PATIENT STABLE ON RA, NO S/S OF DISTRESS OR SOB NOTED, BREATHING EVEN AND UNLABORED. IV ACCESS ON RIGHT HAND #22G INTACT AND INFUSING D5NS @ 75 ML/HR. PUREWICK IN PLACE AND DRAINING CHRISSY URINE. PER DAYSHIFT RN, SON WILL COME TONIGHT TO SIGN CONSENT FOR SACRAL DEBRIDEMENT. SAFETY MEASURES IN PLACE: CALL LIGHT WITHIN REACH, SIDE RAILS UP X 3, BED LOCKED IN LOWEST POSITION, HOB ELEVATED, BED ALARM ON. WILL CONTINUE TO MONITOR PATIENT
--- NOTE | 2022-07-20 20:25 | NUR ---
MS FLOR NOTE PATIENT'S SON KRISTEN BENOIT AT BEDSIDE, UPDATED SON ON CARE PLAN, SON SIGNED CONSENT FOR DEBRIDEMENT OF SACRUM Addendum: 07/20/22 at 2050 by ARNOL AUGUSTE RN WITNESSED BY CHACHO LOPEZ
[2022-07-20 20:38] VITALS: BP 111/72
[2022-07-21] MEDS: IV D5/ 0.9% NACL 1,000 ML IV PRN ×2 (00:53→14:43)
[2022-07-21] MEDS ORDERED: LIDOCAINE 1%-EPI 1:100,000 20 ML VIAL TP ONE (06:00)
[2022-07-21 06:05] LABS: CALCIUM, SERUM 8.2 mg/dL (8.5-10.1); CARBON DIOXIDE 24 mmol/L (21-32); CHLORIDE 109 mmol/L (98-107); CREATININE 0.3 mg/dL (0.6-1.3); GLUCOSE 112 mg/dL (74-106); POTASSIUM 3.4 mmol/L (3.5-5.1); SODIUM SERUM 139 mmol/L (136-145); UREA NITROGEN, BLOOD 18 mg/dL (7-18)
--- NOTE | 2022-07-21 06:43 | NUR ---
MS RN CLOSING NOTE PATIENT SLEEPING IN BED, ALERT/ORIENTED X 2-3. PT STABLE ON ROOM AIR, NO S/S OF DISTRESS OR SOB NOTED, BREATHING EVEN AND UNLABORED. IV ACCESS ON RIGHT HAND #20G INTACT AND INFUSING D5NS @ 75 ML/HR. PUREWICK IN PLACE AND DRAINING CHRISSY URINE, 425 ML OUTPUT, PUREWICK CHANGED THIS AM. MEDICATIONS GIVEN ORDERED, PT NEEDS MET THROUGHOUT SHIFT, PT TURNED AND REPOSITIONED. SAFETY MEASURES IN PLACE: CALL LIGHT WITHIN REACH, SIDE RAILS UP X 3, BED LOCKED IN LOWEST POSITION, HOB ELEVATED, BED ALARM ON. WILL CONTINUE TO MONITOR PATIENT Addendum: 07/21/22 at 0650 by ARNOL AUGUSTE RN *WILL ENDORSE TO ANGEL RN FOR CONTINUITY OF CARE
--- NOTE | 2022-07-21 07:20 | NUR ---
RN OPENING NOTE- PATIENT AWAKE, FLAT AFFECT, INTERACTIVE, SOMEWHAT CONFUSED, PT STABLE ON ROOM AIR. IV ACCESS ON RIGHT HAND #20G INTACT AND INFUSING D5NS @ 75 ML/HR. PUREWICK IN PLACE, PT TURNED AND REPOSITIONED. SAFETY MEASURES IN PLACE: CALL LIGHT WITHIN REACH, SIDE RAILS UP X 3, BED LOCKED IN LOWEST POSITION, HOB ELEVATED,
[2022-07-21] MEDS: DIVALPROEX SODIUM 125 MG CAP.SPRINK PO SCH ×2 (08:56→21:13)
[2022-07-21] MEDS: ARGININE/GLUTAMINE/CALCIUM BMB 1 EACH POWD.PACK PO SCH ×2 (08:56→17:19)
[2022-07-21] MEDS: PROSOURCE / PROSTAT (PYXIS) 30 ML UDC GT SCH ×2 (08:56→17:19)
[2022-07-21] MEDS: DAKINS QUARTER STRENGTH (0.125%) 480 ML BOTTLE TOP SCH (08:56)
[2022-07-21] MEDS: PANTOPRAZOLE 40 MG VIAL IV SCH (08:56)
[2022-07-21 09:15] VITALS: BP 111/71
[2022-07-21] MEDS ORDERED: POTASSIUM CHLORIDE 20 MEQ POWDER PACKET PO SCH (10:30)
[2022-07-21] MEDS ORDERED: POTASSIUM CHLORIDE 20 MEQ POWDER PACKET ONE ×2 (12:13→13:05)
[2022-07-21] MEDS ORDERED: DEXTROSE 50%-WATER 50 ML DISP.SYRIN IV PRN (12:30)
[2022-07-21] MEDS: BLOOD SUGAR DIAGNOSTIC 1 EACH STRIP IN SCH ×2 (16:46→21:20)
[2022-07-21] MEDS: INSULIN REGULAR, HUMAN 100 UNIT/ML 3 ML VIAL SQ PRN ×2 (16:46→21:24)
--- NOTE | 2022-07-21 18:34 | NUR ---
RN CLOSING NOTE- UNCHANGED, SACRAL DEBRIDEMENT MOVED TO TOMORROW. PATIENT AWAKE, FLAT AFFECT, INTERACTIVE, SOMEWHAT CONFUSED, PT STABLE ON ROOM AIR. IV ACCESS ON RIGHT HAND #20G INTACT AND INFUSING D5NS @ 75 ML/HR. K REPLACED, PUREWICK IN PLACE, PT TURNED AND REPOSITIONED. SAFETY MEASURES IN PLACE: CALL LIGHT WITHIN REACH, SIDE RAILS UP X 3, BED LOCKED IN LOWEST POSITION, HOB ELEVATED,MONITOR / ASSIST
[2022-07-21 18:35] VITALS: BP 116/70
--- NOTE | 2022-07-21 19:20 | NUR ---
RN opening notes Pt is sitting in bed comfortably. Pt is alert and orientedX2. On room air. No SOB. No S/S of distress noted. IV site at R hand # 20 is clean, intact and infuising well D5NS@ 75 ml/hr. Snacks is given and provided. Purewicks is inplaced and draining yellow urine. Safety precautions is maintained. bed at low position, brakes locked, side rails upX3, bed alarm is on and call light is within reach. Will continue to monitor.
[2022-07-21 20:00] VITALS: BP 115/69
[2022-07-22] MEDS: IV D5/ 0.9% NACL 1,000 ML IV PRN ×2 (03:35→18:09)
[2022-07-22] MEDS: INSULIN REGULAR, HUMAN 100 UNIT/ML 3 ML VIAL SQ PRN ×2 (06:39→11:25)
[2022-07-22] MEDS: BLOOD SUGAR DIAGNOSTIC 1 EACH STRIP IN SCH ×4 (06:39→21:36)
--- NOTE | 2022-07-22 06:39 | NUR ---
RN notes Pt's BS 80. Held per level ordered. No S/s of hypoglycemia. No S/s of distress noted. Snacks is given and provided throughout the pm shift. Will continue to monitor.
--- NOTE | 2022-07-22 06:42 | NUR ---
RN closing notes Pt is resting in bed comfortably. Pt is alert and orientedX2. On room air. No SOB. No S/S of distress noted. IV site at R hand # 20 is clean, intact and infuising well D5NS@ 75 ml/hr. Kept Pt clean,dry and comfortbale. Wound care provided as ordered. Purewicks is inplaced and draining yellow urine. Safety precautions is maintained. bed at low position, brakes locked, side rails upX3, bed alarm is on and call light is within reach. Will endorse to am nurse for THONG.
[2022-07-22 06:53] LABS: CALCIUM, SERUM 8.1 mg/dL (8.5-10.1); CARBON DIOXIDE 27 mmol/L (21-32); CHLORIDE 108 mmol/L (98-107); CREATININE 0.2 mg/dL (0.6-1.3); GLUCOSE 92 mg/dL (74-106); POTASSIUM 3.2 mmol/L (3.5-5.1); SODIUM SERUM 141 mmol/L (136-145); UREA NITROGEN, BLOOD 22 mg/dL (7-18)
--- NOTE | 2022-07-22 07:47 | NUR ---
MS RN OPENING NOTES; RECEIVED PT AWAKE, A/O X2, WITH PERIODS OF CONFUSION. ON RA WITH NO S/S OF SOB. HOB ON HIGH FOWLERS FOR ASPIRATION PRECAUTIONS. IV ACCESS AT R HAND # 20 RUNNING D5NS @ 75ML/HR. PUREWICK IN PLACE. ALL SAFETY PRECAUTIONS MAINTAINED, CALL LIGHT AND TABLE WITHIN REACH, WILL CONT WITH PLAN OF CARE DURING SHIFT.
[2022-07-22] MEDS: DIVALPROEX SODIUM 125 MG CAP.SPRINK PO SCH ×2 (08:46→21:26)
[2022-07-22] MEDS: PROSOURCE / PROSTAT (PYXIS) 30 ML UDC GT SCH ×2 (08:46→17:17)
[2022-07-22] MEDS: PANTOPRAZOLE 40 MG VIAL IV SCH (08:46)
[2022-07-22 08:47] VITALS: BP 98/60
[2022-07-22] MEDS: ARGININE/GLUTAMINE/CALCIUM BMB 1 EACH POWD.PACK PO SCH ×2 (08:55→17:17)
[2022-07-22] MEDS: DAKINS QUARTER STRENGTH (0.125%) 480 ML BOTTLE TOP SCH (10:22)
[2022-07-22] MEDS: POTASSIUM CL. PREMIX PERIPHER. 50 ML IV SCH ×4 (10:25→14:11)
[2022-07-22] MEDS: GLUCERNA SHAKE 237 ML CAN PO SCH ×2 (11:50→17:17)
[2022-07-22 17:10] VITALS: BP 117/76
--- NOTE | 2022-07-22 19:03 | NUR ---
MS RN CLOSING NOTES: PT ASLEEP, EASILY ROUSED, A/O X2, WITH PERIODS OF CONFUSION. ON RA WITH NO S/S OF SOB. HOB ON HIGH FOWLERS FOR ASPIRATION PRECAUTIONS. IV ACCESS AT L FA # 22 RUNNING D5NS @ 75ML/HR. PUREWICK IN PLACE, DRAINING DARK YELLOW URINE. ALL NEEDS MET, WOUND CARE DONE. KEPT PT CLEAN, DRY AND COMFORTABLE. ALL SAFETY PRECAUTIONS MAINTAINED, CALL LIGHT AND TABLE WITHIN REACH, WILL ENDORSE TO PM SHIFT.
--- NOTE | 2022-07-22 20:04 | NUR ---
RN MS OPENING NOTES RECEIVED PATIENT IN BED, A/O X 2 ON ROOM AIR SATURATING WELL, NO SOB/ AT THIS TIME. ON PUREED DIET TOTAL ASSIST CRUSHED MEDICATIONS ELEVATE THE HEAD OF THE BED 90 DEGREES AT ALL TIMES, ON ASPIRATION PRECAUTIONS AT ALL TIMES. STATUS POST SACRAL WOUND DEBRIDEMENT NO ACTIVE BLEEDING NOTED. REPOSITION PATIENT EVERY 2 HOURS. WITH IV ACCESS AT LFA D5NS 1L AT 75ML/HR INFUSING WELL NO INFILTRATION OR SWELLING NOTED AT THIS TIME. NO PAIN OR DISCOMFORT NOTED, KEPT PATIENT WARM AND COMFORTABLE, KEPT BED ON LOWER LOCKED POSITION , KPET SIDE RAILS UP X 2 ALL THE TIME. SAFETY AND COMFORT MAINTAINED. WILL CONTINUE TO MONITOR
[2022-07-23] MEDS: BLOOD SUGAR DIAGNOSTIC 1 EACH STRIP IN SCH ×4 (06:18→21:47)
--- NOTE | 2022-07-23 06:19 | NUR ---
RN S CLOSING NOTES PATIENT IS IN BED, A/O X 2 ON ROOM AIR SATURATING WELL, NO SOB/ AT THIS TIME. ON PUREED DIET TOTAL ASSIST CRUSHED MEDICATIONS ELEVATE THE HEAD OF THE BED 90 DEGREES AT ALL TIMES, ON ASPIRATION PRECAUTIONS AT ALL TIMES. STATUS POST SACRAL WOUND DEBRIDEMENT NO ACTIVE BLEEDING NOTED WOUND CARE DONE. REPOSITION PATIENT EVERY 2 HOURS. WITH IV ACCESS AT LFA D5NS 1L AT 75ML/HR INFUSING WELL NO INFILTRATION OR SWELLING NOTED AT THIS TIME. ALL DUE MEDICATIONS GIVEN,ALL NEEDS ATTENDED , PM CARE RENDERED, NO PAIN OR DISCOMFORT NOTED, KEPT PATIENT WARM AND COMFORTABLE, KEPT BED ON LOWER LOCKED POSITION , KPET SIDE RAILS UP X 2 ALL THE TIME. SAFETY AND COMFORT MAINTAINED. WILL ENDORSED TO NEXT SHIFT FOR THONG.
[2022-07-23] MEDS: IV D5/ 0.9% NACL 1,000 ML IV PRN ×2 (06:27→18:36)
--- NOTE | 2022-07-23 07:56 | NUR ---
MS RN OPENING NOTES RECEIVED PATIENT IN BED, ASLEEP BUT EASY TO AROUSE, A/O X2. NO SIGNS OF ACUTE DISTRESS NOTED. ON ROOM AIR SATURATING WELL, NO SOB, BREATHING EVEN AND UNLABORED. PATIENT IS ON PUREED DIET TOTAL ASSIST CRUSHED MEDICATIONS; ELEVATE THE HEAD OF THE BED 90 DEGREES AT ALL TIMES; ON ASPIRATION PRECAUTIONS AT ALL TIMES. NOTED WITH IV ACCESS AT L FA RUNNING D5NS 1L AT 75ML/HR; INFUSING WELL. REPOSITION PATIENT EVERY 2 HOURS. NO PAIN OR DISCOMFORT NOTED, SAFETY MEASURES IN PLACE; BED IN LOW AND LOCKED POSITION; SIDE RAILS UP X2; CALL LIGHT WITHIN EASY REACH. WILL CONTINUE WITH PLAN OF CARE.
[2022-07-23 08:21] LABS: CALCIUM, SERUM 7.9 mg/dL (8.5-10.1); CARBON DIOXIDE 24 mmol/L (21-32); CHLORIDE 113 mmol/L (98-107); CREATININE 0.4 mg/dL (0.6-1.3); GLUCOSE 86 mg/dL (74-106); POTASSIUM 3.7 mmol/L (3.5-5.1); SODIUM SERUM 143 mmol/L (136-145); UREA NITROGEN, BLOOD 21 mg/dL (7-18)
[2022-07-23 08:26] VITALS: BP 104/58
[2022-07-23] MEDS: PROSOURCE / PROSTAT (PYXIS) 30 ML UDC GT SCH ×2 (08:46→16:55)
[2022-07-23] MEDS: GLUCERNA SHAKE 237 ML CAN PO SCH ×3 (08:46→16:55)
[2022-07-23] MEDS: DIVALPROEX SODIUM 125 MG CAP.SPRINK PO SCH ×2 (08:50→21:47)
[2022-07-23] MEDS: DAKINS QUARTER STRENGTH (0.125%) 480 ML BOTTLE TOP SCH (08:50)
[2022-07-23] MEDS: ARGININE/GLUTAMINE/CALCIUM BMB 1 EACH POWD.PACK PO SCH ×2 (08:51→16:55)
[2022-07-23] MEDS: PANTOPRAZOLE 40 MG/PACK PACK PO SCH (08:51)
--- NOTE | 2022-07-23 09:00 | NUR ---
MS RN NOTES WOUND CARE DONE ON SACRAL AREA. PATIENT TOLERATED WELL. WILL CONTINUE TO MONITOR.
[2022-07-23 16:03] VITALS: BP 107/60
--- NOTE | 2022-07-23 18:59 | NUR ---
MS RN CLOSING NOTES PATIENT IN BED, AWAKE, A/O X2. NO SIGNS OF ACUTE DISTRESS NOTED. ON ROOM AIR TOLERATED WELL, NO SOB, BREATHING EVEN AND UNLABORED. PATIENT IS ON PUREED DIET TOTAL ASSIST CRUSHED MEDICATIONS; ELEVATE THE HEAD OF THE BED 90 DEGREES AT ALL TIMES; ON ASPIRATION PRECAUTIONS AT ALL TIMES. NOTED WITH IV ACCESS AT L FA RUNNING D5NS 1L AT 75ML/HR; INFUSING WELL. REPOSITION PATIENT EVERY 2 HOURS. NO PAIN OR DISCOMFORT NOTED. WOUND CARE DONE 2X DURING SHIFT. ALL DUE MEDS GIVEN. ALL NURSING NEEDS ATTENDED. SAFETY MEASURES IMPLEMENTED. BED IN LOWEST AND LOCKED POSITION. SIDE RAILS UP X2; CALL LIGHT AND TABLE WITHIN EASY REACH; WILL ENDORSE TO SURVEYOR HELPER ROD NURSE FOR CONTINUITY OF CARE.
--- NOTE | 2022-07-23 19:35 | NUR ---
MS RN OPENING NOTE PATIENT SLEEPING IN BED, EASILY AWAKENED, ALERT/ORIENTED X 2. PT STABLE ON RA, NO S/S OF DISTRESS OR SOB NOTED, BREATHING EVEN AND UNLABORED. IV ACCESS ON LEFT FOREARM #22G INTACT AND INFUSING LR @ 75 ML/HR. PUREWICK IN PLACE AND DRAINING YELLOW URINE. SAFETY MEASURES IN PLACE: CALL LIGHT WITHIN REACH, SIDE RAILS UP X 3, BED LOCKED IN LOWEST POSITION, HOB ELEVATED, BED ALARM ON. WILL CONTINUE TO MONITOR PATIENT Addendum: 07/23/22 at 2235 by ARNOL AUGUSTE RN INFUSING D5NS @ 75 ML/HR
[2022-07-23 20:00] VITALS: BP 112/67
[2022-07-23] MEDS: INSULIN REGULAR, HUMAN 100 UNIT/ML 3 ML VIAL SQ PRN (22:21)
[2022-07-24] MEDS: BLOOD SUGAR DIAGNOSTIC 1 EACH STRIP IN SCH ×4 (06:59→22:06)
[2022-07-24] MEDS: INSULIN REGULAR, HUMAN 100 UNIT/ML 3 ML VIAL SQ PRN ×4 (07:00→22:06)
--- NOTE | 2022-07-24 07:20 | NUR ---
MS RN CLOSING NOTE PATIENT AWAKE IN BED, EASILY AWAKENED, ALERT/ORIENTED X 2. PT STABLE ON RA, NO S/S OF DISTRESS OR SOB NOTED, BREATHING EVEN AND UNLABORED. IV ACCESS ON LEFT FOREARM #22G INTACT AND INFUSING D5NS @ 75 ML/HR. PUREWICK IN PLACE AND CHANGED THIS AM. MEDICATIONS GIVEN ORDERED, PT NEEDS MET THROUGHOUT SHIFT, PT TURNED AND REPOSITIONED Q2H, SACRAL WOUND CARE DONE THIS AM. SAFETY MEASURES IN PLACE: CALL LIGHT WITHIN REACH, SIDE RAILS UP X 3, BED LOCKED IN LOWEST POSITION, HOB ELEVATED, BED ALARM ON. ENDORSED TO DAYSHIFT RN FOR CONTINUITY OF CARE
--- NOTE | 2022-07-24 07:30 | NUR ---
MS RN OPENING NOTE PATIENT AWAKE IN BED, ALERT/ORIENTED X 2. PT STABLE ON RA, NO S/S OF DISTRESS OR SOB NOTED, BREATHING EVEN AND UNLABORED. IV ACCESS ON LEFT FOREARM #22G INTACT AND INFUSING LR @ 75 ML/HR. PUREWICK IN PLACE AND DRAINING CLEAR YELLOW URINE. SAFETY MEASURES IN PLACE: CALL LIGHT WITHIN REACH, SIDE RAILS UP X 3, BED LOCKED IN LOWEST POSITION, HOB ELEVATED, BED ALARM ON. WILL CONTINUE TO MONITOR PATIENT
[2022-07-24 08:00] VITALS: BP 131/79
[2022-07-24] MEDS: GLUCERNA SHAKE 237 ML CAN PO SCH ×3 (08:22→17:11)
[2022-07-24] MEDS: DIVALPROEX SODIUM 125 MG CAP.SPRINK PO SCH ×2 (08:23→21:42)
[2022-07-24] MEDS: PROSOURCE / PROSTAT (PYXIS) 30 ML UDC GT SCH ×2 (08:23→16:07)
[2022-07-24] MEDS: PANTOPRAZOLE 40 MG/PACK PACK PO SCH (08:23)
[2022-07-24] MEDS: ARGININE/GLUTAMINE/CALCIUM BMB 1 EACH POWD.PACK PO SCH ×2 (08:24→16:07)
[2022-07-24] MEDS: DAKINS QUARTER STRENGTH (0.125%) 480 ML BOTTLE TOP SCH (08:26)
[2022-07-24] MEDS: IV D5/ 0.9% NACL 1,000 ML IV PRN (13:07)
[2022-07-24 15:57] VITALS: BP 136/86
--- NOTE | 2022-07-24 18:37 | NUR ---
MS RN CLOSING NOTE PATIENT AWAKE IN BED WATCHING TV, ALERT/ORIENTED X 2 WITH EPISODES OF CONFUSION. PT STABLE ON RA, NO S/S OF DISTRESS OR SOB NOTED, BREATHING EVEN AND UNLABORED. IV ACCESS ON RIGHT FOREARM #22G INTACT PATENT, AND INFUSING D5NS @ 75 ML/HR. PUREWICK IN PLACE AND CHANGED THIS AFTERNOON. MEDICATIONS GIVEN ORDERED, PT NEEDS MET THROUGHOUT SHIFT, PT TURNED AND REPOSITIONED Q2H, SACRAL WOUND CARE DONE THIS AFTERNOON. SAFETY MEASURES IN PLACE: CALL LIGHT WITHIN REACH, SIDE RAILS UP X 3, BED LOCKED IN LOWEST POSITION, HOB ELEVATED, BED ALARM ON. ENDORSE TO [facility] SHIFT NURSE FOR [place]ONG.
--- NOTE | 2022-07-24 19:40 | NUR ---
MS RN OPENING NOTES PATIENT AWAKE IN BED, ALERT/ORIENTED X 2, PT ABLE TO MAKE NEEDS KNOWN. PATIENT STABLE ON RA, NO S/S OF DISTRESS OR SOB NOTED, BREATHING EVEN AND UNLABORED. ASSISTED PATIENT WITH DRINKING GLUCERNA SHAKE. IV ACCESS ON RIGHT FOREARM #22G INTACT AND INFUSING D5NS @ 75 ML/HR. PUREWICK IN PLACE AND DRAINING YELLOW URINE BY GRAVITY. SAFETY MEASURES IN PLACE: CALL LIGHT WITHIN REACH, SIDE RAILS UP X 3, BED LOCKED IN LOWEST POSITION, HOB ELEVATED AT 90 DEGREES, BED ALARM ON. WILL CONTINUE TO MONITOR PATIENT
[2022-07-25] MEDS: IV D5/ 0.9% NACL 1,000 ML IV PRN ×2 (03:37→17:36)
[2022-07-25] MEDS: BLOOD SUGAR DIAGNOSTIC 1 EACH STRIP IN SCH ×4 (06:30→22:22)
[2022-07-25] MEDS: INSULIN REGULAR, HUMAN 100 UNIT/ML 3 ML VIAL SQ PRN ×4 (06:30→22:23)
--- NOTE | 2022-07-25 06:35 | NUR ---
MS RN CLOSING NOTE PATIENT SLEEPING IN BED, EASILY AWAKENED, ALERT/ORIENTED X 2, WITH SLOW/DELAYED SPEECH, PT ABLE TO MAKE NEEDS KNOWN. PT STABLE ON RA, NO S/S OF DISTRESS OR SOB NOTED, BREATHING EVEN AND UNLABORED. IV ACCESS ON RIGHT FOREARM #22G INTACT AND INFUSING D5NS @ 75 ML/HR. PUREWICK IN PLACE AND CHANGED THIS AM. MEDICATIONS GIVEN ORDERED, PT NEEDS MET THROUGHOUT SHIFT, PT TURNED AND REPOSITIONED Q2H, SACRAL WOUND CARE DONE THIS AM, ORAL CARE DONE. SAFETY MEASURES IN PLACE: CALL LIGHT WITHIN REACH, SIDE RAILS UP X 3, BED LOCKED IN LOWEST POSITION, HOB ELEVATED, BED ALARM ON. WILL ENDORSE TO DAYSHIFT RN FOR CONTINUITY OF CARE
[2022-07-25 07:00] VITALS: BP 116/70
--- NOTE | 2022-07-25 07:32 | NUR ---
MS RN OPENING NOTES PATIENT AWAKE IN BED, ALERT/ORIENTED X 2, PT ABLE TO MAKE NEEDS KNOWN. PATIENT STABLE ON RA, NO S/S OF DISTRESS OR SOB NOTED, BREATHING EVEN AND UNLABORED. IV ACCESS ON RIGHT FOREARM #22G INTACT, PATENT, AND INFUSING D5NS @ 75 ML/HR. PUREWICK IN PLACE AND DRAINING YELLOW URINE BY GRAVITY. SAFETY MEASURES IN PLACE: CALL LIGHT WITHIN REACH, SIDE RAILS UP X 3, BED LOCKED IN LOWEST POSITION, HOB ELEVATED AT 90 DEGREES, BED ALARM ON. WILL CONTINUE TO MONITOR PATIENT.
[2022-07-25] MEDS: GLUCERNA SHAKE 237 ML CAN PO SCH ×3 (07:45→17:29)
[2022-07-25] MEDS: DIVALPROEX SODIUM 125 MG CAP.SPRINK PO SCH ×2 (08:13→21:10)
[2022-07-25] MEDS: PANTOPRAZOLE 40 MG/PACK PACK PO SCH (08:13)
[2022-07-25] MEDS: DAKINS QUARTER STRENGTH (0.125%) 480 ML BOTTLE TOP SCH (08:14)
[2022-07-25] MEDS: PROSOURCE / PROSTAT (PYXIS) 30 ML UDC GT SCH ×2 (08:15→16:28)
[2022-07-25] MEDS: ARGININE/GLUTAMINE/CALCIUM BMB 1 EACH POWD.PACK PO SCH ×2 (08:15→16:28)
[2022-07-25 16:00] VITALS: BP 108/67
--- NOTE | 2022-07-25 18:22 | NUR ---
MS RN CLOSING NOTE PATIENT AWAKE IN BED, ALERT/ORIENTED X 2, PT ABLE TO MAKE NEEDS KNOWN. PATIENT STABLE ON RA, NO S/S OF DISTRESS OR SOB NOTED, BREATHING EVEN AND UNLABORED. NO COMPLAINT OF DISCOMFORT OR PAIN DURING THE SHIFT. MEDICATIONS GIVEN ORDERED, PT NEEDS MET THROUGHOUT SHIFT, PT TURNED AND REPOSITIONED Q2H, SACRAL WOUND CARE DONE THIS AFTERNOON, ORAL CARE DONE. IV ACCESS ON RIGHT FOREARM #22G INTACT, PATENT, AND INFUSING D5NS @ 75 ML/HR. PUREWICK IN PLACE AND DRAINING YELLOW URINE BY GRAVITY. SAFETY MEASURES IN PLACE: CALL LIGHT WITHIN REACH, SIDE RAILS UP X 3, BED LOCKED IN LOWEST POSITION, HOB ELEVATED AT 90 DEGREES, BED ALARM ON. WILL ENDORSE TO THE [employer] DBA NURSE FOR [facility].
--- NOTE | 2022-07-25 19:00 | NUR ---
RN OPENING NOTE RECEIVED PT AWAKE AND SITTING UPRIGHT IN BED. PT IS A/O X2, SLOW AND DELAYED IN SPEECH BUT ABLE TO MAKE NEEDS KNOWN. PT IS IN RA TOLERATING WELL, BREATHING EVEN AND UNLABORED @ THIS TIME. PT IV PRESENT IN THE RIGHT FOREARM #22G RUNNING D5NS @75MLS/HR, PATENT, INTACT AND FLUSHES WELL W/ NO S&SX OF INFILTRATION @ SITE NOTED. PT HAS PURE WICK IN PLACE DRAINING YELLOW COLORED URINE. SAFETY MEASURES IN PLACE. BED IN LOWEST & LOCKED POSITION. SIDE RAILS X 4. BEDSIDE TABLE & CALL LIGHT IS EASY REACH. BED ALARM IS ON. WILL CONTINUE TO MONITOR PT ACCORDINGLY.
[2022-07-25 20:00] VITALS: BP 125/86
--- NOTE | 2022-07-25 22:23 | NUR ---
BLOOD GLUCOSE IS WITHIN RANGE. NO COVERAGE NEEDED.
--- NOTE | 2022-07-25 23:42 | NUR ---
IV @ RIGHT FOREARM INFILTRATED. IV OUT. INSERTED IV ON LEFT FOREARM #22G.
[2022-07-26] MEDS: IV D5/ 0.9% NACL 1,000 ML IV PRN (05:52)
[2022-07-26] MEDS: BLOOD SUGAR DIAGNOSTIC 1 EACH STRIP IN SCH ×2 (06:30→14:54)
[2022-07-26] MEDS: INSULIN REGULAR, HUMAN 100 UNIT/ML 3 ML VIAL SQ PRN (06:31)
--- NOTE | 2022-07-26 06:31 | NUR ---
BLOOD GLUCOSE OF 88. BLOOD GLUCOSE IS WITHIN RANGE. NO COVERAGE NEEDED.
--- NOTE | 2022-07-26 06:35 | NUR ---
RN CLOSING NOTE PT AWAKE & RESTING COMFORTABLY IN BED. PT IS A/O X2. PT IS IN RA W/ NO S&SX OF RESPIRATORY DISTRESS @ THIS TIME. PT IV PRESENT IN THE RIGHT FOREARM #22G RUNNING D5NS @75MLS/HR, PATENT, INTACT AND FLUSHES WELL W/ NO S&SX OF INFILTRATION @ SITE NOTED. PT HAS PURE WICK IN PLACE DRAINING CHRISSY COLORED URINE.SAFETY MEASURES IN PLACE. BED IN LOWEST & LOCKED POSITION. SIDE RAILS X 4. BEDSIDE TABLE & CALL LIGHT IS EASY REACH. BED ALARM IS ON. WILL ENDORSE TO THE NEXT SHIFT FOR [facility].
--- NOTE | 2022-07-26 07:38 | NUR ---
MS RN OPENING NOTE (DAY SHIFT) PATIENT ASLEEP IN BED, EASILY AROUSED, ALERT/ORIENTED X 2. PT IS ABLE TO MAKE NEEDS KNOWN. PATIENT IS STABLE ON RA, NO S/S OF DISTRESS NOR SOB NOTED, BREATHING EVEN AND UNLABORED. IV ACCESS ON RIGHT FOREARM #22G INTACT, PATENT, AND INFUSING D5NS @ 75 ML/HR. PUREWICK IN PLACE AND DRAINING YELLOW URINE BY LOW INTERMITTTENT WALL SUCTION. SAFETY MEASURES IN PLACE: CALL LIGHT WITHIN REACH, SIDE RAILS UP X 3, BED LOCKED IN LOWEST POSITION, HOB ELEVATED AT 45 DEGREES, BED ALARM ON. WILL CONTINUE TO CARE FOR AND MONITOR PATIENT PER HOSPITALIST'S POC.
[2022-07-26 08:00] VITALS: BP 114/70
[2022-07-26] MEDS ORDERED: DIVA125C2 PO (09:06)
[2022-07-26] MEDS: PROSOURCE / PROSTAT (PYXIS) 30 ML UDC GT SCH (10:15)
[2022-07-26] MEDS: ARGININE/GLUTAMINE/CALCIUM BMB 1 EACH POWD.PACK PO SCH (10:15)
[2022-07-26] MEDS: GLUCERNA SHAKE 237 ML CAN PO SCH ×2 (10:15→12:00)
[2022-07-26] MEDS: DAKINS QUARTER STRENGTH (0.125%) 480 ML BOTTLE TOP SCH (10:16)
[2022-07-26] MEDS: PANTOPRAZOLE 40 MG/PACK PACK PO SCH (10:21)
[2022-07-26] MEDS: DIVALPROEX SODIUM 125 MG CAP.SPRINK PO SCH (10:21)
[2022-07-26 16:00] VITALS: BP 135/84
--- NOTE | 2022-07-26 16:38 | NUR ---
MS COLOR PASTE MIXER BACK TO SNF NOTE Patient tolerated well the removal of the #22 Gauge PIV catheter fully intact without any complications of IV therapy. Phone report given to receiving nurse at [facility]. Verbal report given to condenser tube tender. Patient departed the [facility] @ 16:20 hours via gurney to ambulance bound for the [facility].
== END 2022-07-26 16:20 | DRG 628 ==
LOC: ER 17:37 → MED 19:59
PROVIDERS: ADMIT Nurse Practitioner Acute Care; ATTEND Internal Medicine
PROC: 0QB10ZZ Excision of Sacrum, Open Approach (ICD-10-PCS; principal; 2022-07-22)
DX: R62.7 Adult failure to thrive (principal); E43 Unspecified severe protein-calorie malnutrition; L89.154 Pressure ulcer of sacral region, stage 4; G93.41 Metabolic encephalopathy; E87.1 Hypo-osmolality and hyponatremia; M46.28 Osteomyelitis of vertebra, sacral and sacrococcygeal region; D68.69 Other thrombophilia; R64 Cachexia; E78.5 Hyperlipidemia, unspecified; E86.0 Dehydration; D72.829 Elevated white blood cell count, unspecified; E86.1 Hypovolemia; G89.4 Chronic pain syndrome; R53.1 Weakness; G30.9 Alzheimer's disease, unspecified; F02.80 Dementia in other diseases classified elsewhere, unspecified severity, without behavioral disturbance, psychotic disturbance, mood disturbance, and anxiety; F99 Mental disorder, not otherwise specified; Z74.09 Other reduced mobility; Z68.20 Body mass index [BMI] 20.0-20.9, adult; Z20.822 Contact with and (suspected) exposure to COVID-19; M21.371 Foot drop, right foot; M21.372 Foot drop, left foot; Z74.01 Bed confinement status; R13.10 Dysphagia, unspecified
CPT/HCPCS: 36415; 71045-TC; 80048-TC; 80076-TC; 82962-TC; 83735-TC; 84100-TC; 84443-TC; 85025-TC; 87081-TC; 92526; 92611-TC; A4223; A6253; A6403; C9113; C9803; G0378; J1650; J1815; J3480; J3490; J7030; J7042